=== PATIENT | male | born 1960 | race Caucasian/White ===

== ENCOUNTER 2018-09-23 09:58 | Day surgery (SDC) | payer OTHER ==
[~2018-09-23] VITALS: Ht 180.3 cm; Wt 126.8 kg
[2018-09-23] MEDS ORDERED: OXYC5CAP2 PO (10:17)
[2018-09-23 10:18] VITALS: BP 128/86
[2018-09-23] MEDS ORDERED: LACTATED RINGERS 1,000 ML IV SCH (10:22)
[2018-09-23] MEDS ORDERED: MIDAZOLAM 1 MG/ML, 2ML ONE (11:14)
[2018-09-23] MEDS ORDERED: ROCURONIUM 10MG/ML,5ML ONE (11:14)
[2018-09-23] MEDS ORDERED: FENTANYL PF 250 MCG/5ML ONE (11:14)
[2018-09-23] MEDS ORDERED: PROPOFOL 10 MG/ML, 20ML ONE (11:14)
[2018-09-23] MEDS ORDERED: BUPIVACAINE/PF-EPI 0.5% 1:200K ONE (11:22)
[2018-09-23] MEDS ORDERED: LABETALOL 5MG/ML, 20ML IV PRN (11:30)
[2018-09-23] MEDS ORDERED: OXYcodone 5 MG/5 ML ORAL.SOL UDC PO PRN (11:30)
[2018-09-23] MEDS ORDERED: PROMETHAZINE 25 MG/ML, 1ML IV PRN (11:30)
[2018-09-23] MEDS ORDERED: MEPERIDINE/PF 25MG/0.5ML IVPush PRN (11:30)
[2018-09-23] MEDS ORDERED: ONDANSETRON 2MG/ML, 2ML IV PRN (11:30)
[2018-09-23] MEDS ORDERED: hydrALAzine 20 MG/ML, 1ML IV PRN (11:30)
[2018-09-23] MEDS ORDERED: ACETAMINOPHEN 325 MG TABLET PO PRN (11:30)
[2018-09-23] MEDS ORDERED: DEXAMETHASONE 4 MG/ML, 1ML ONE ×2 (12:06)
[2018-09-23] MEDS ORDERED: CEFAZOLIN 1,000 MG ONE ×2 (12:07)
[2018-09-23] MEDS ORDERED: ONDANSETRON 2MG/ML, 2ML ONE ×2 (12:42→12:57)
[2018-09-23] MEDS ORDERED: NEOSTIGMINE 1 MG/ML, 10ML ONE (12:58)
[2018-09-23] MEDS ORDERED: GLYCOPYRROLATE 0.4 MG/2 ML, 2ML ONE ×2 (13:02)
[2018-09-23] MEDS ORDERED: ACETAMINOPHEN 650 MG/20.3 ML UDC ONE (13:20)
[2018-09-23] MEDS ORDERED: OXYcodone 5 MG/5 ML ORAL.SOL UDC ONE (13:21)
[2018-09-23] MEDS ORDERED: FENTANYL PF 100 MCG/2ML ONE (13:21)
[2018-09-23] MEDS: FENTANYL PF 100 MCG/2ML IV PRN ×2 (13:23→13:36)
[2018-09-23] MEDS ORDERED: PROMETHAZINE 25 MG/ML, 1ML ONE (13:26)
[2018-09-23] MEDS ORDERED: HYDROmorphone 2 MG/ML, 1ML ONE (13:40)
[2018-09-23] MEDS: HYDROmorphone 2 MG/ML, 1ML IVPush PRN ×3 (13:43→14:00)
[2018-09-23] MEDS ORDERED: OXYcodone IR 5MG TABLET ONE (17:25)
== END 2018-09-23 18:11 | disposition home or self-care (01) ==
LOC: OUT 09:58
PROVIDERS: ATTEND Surgery
DX: K42.0 Umbilical hernia with obstruction, without gangrene (principal); Z98.890 Other specified postprocedural states; Z87.891 Personal history of nicotine dependence
CPT/HCPCS: 49653; C1781; J0690; J1100; J1170; J2250; J2405; J2550; J2704; J2710; J3010; J7120; S2900